=== PATIENT | female | born 1985 | race Asian ===

== ENCOUNTER → 2017-02-11 | Outpatient (CLI) | payer OTHER ==
--- NOTE | ~2017-02-11 | HM ---
Unit #: [id number] #: [id number] Patient: FAITH BEAL [id number] [address] [address] [id number] O MR#: [id number] NAME: FAITH BEAL : 1985 SEX: F STUDY DATE/TIME: 02/11/2017 UNIT: [facility] ROOM: STUDY DESCRIPTION: Holter Monitor Attending Physician: Shanna Zapata M.D. Referring Physician: Shanna Zapata M.D. Primary Care Physician: Francesca Ellis CARDIOLOGY REPORT EXAM Holter Monitor DATE APPLIED 02/11/2017 DATE SCANNED 02/14/[address] Zapata READ BY Rehan Lunsford M.D. INDICATION Palpitations COMMENTS 1. Underlying rhythm is sinus tachycardia. Slowest recorded heart rate is 65, maximum recorded heart rate is 140 beats per minute with an average heart rate of 99 beats per minute. 2. No significant slowing of the heart rate is noted. 3. No significant arrhythmia is noted. 4. Because of baseline artifact, computer counted normal sinus beats as PVCs. 5. No premature atrial or ventricular contractions are recorded. 6. There is no AV ralf block, sinus arrest or sinus pause. 7. Patient did not report any symptoms or maintain an activity diary. IMPRESSION 1. 24 hour ambulatory monitoring shows normal sinus rhythm with heart rates within the physiological range. 2. No significant slowing of the heart rate. 3. No significant tachyarrhythmia. Dictated by... Rehan Lunsford M.D. COU/tyler Unit #: [id number] #: [id number] Patient: FAITH BEAL TD: 02/18/2017 05:22 JOB #: [id number] CC: Shanna Zapata M.D. CARDIOLOGY REPORT Page 1 of 1 X Rehan Lunsford MD HOLTER MONITOR REPORT
== END | disposition home or self-care (01) ==
LOC: CEKG 09:05
DX: R00.2 Palpitations (principal)
CPT/HCPCS: 93225; 93226